=== PATIENT | female | born 1950 | race Caucasian/White ===

== ENCOUNTER → 2017-09-12 13:23 | Outpatient (CLI) | payer MEDICARE, SELFPAY ==
--- NOTE | 2017-09-12 13:31 | RAD_ITS ---
STUDY: X-RAY - CERVICAL SPINE REASON FOR EXAM: Female, 67 years old. Pain TECHNIQUE: 6 view(s) of the cervical spine were obtained. COMPARISON: None FINDINGS: Normal anterior atlantoaxial articulation. Normal odontoid process. Normal cervical lordosis. Normal vertebral bodies. Mild spurring at the endplates. Normal disc space heights. With spurring slightly narrowing the C4-5 and C5-6 intervertebral neuroforamina. The soft tissue structures are unremarkable. RAD/Cerv Spine 4 or 5 Views IMPRESSION: Degenerative changes of the visualized cervical spine. Correlate with CT if needed. Electronically Signed: Ilir Trevizo DO at 23:13 EDT Tel [phone], Service support ,
--- NOTE | 2017-09-12 13:31 | RAD_ITS ---
STUDY: X-RAY - LEFT SHOULDER REASON FOR EXAM: Female, 67 years old. Pain TECHNIQUE: 4 view(s) of the shoulder. COMPARISON: None. FINDINGS: Normal glenohumeral articulation. Normal acromioclavicular joint. Normal acromion. Normal humeral head. Possible subchondral cystic area of the greater tuberosity. The soft tissue structures are unremarkable. Normal visualized pulmonary apex. RAD/Shoulder min 2 Views IMPRESSION: No acute bony pathology of the shoulder. Electronically Signed: Ilir Trevizo DO at 21:17 EDT Tel [phone], Service support ,
== END ==
PROVIDERS: Family Provider Family Medicine; PCP Family Medicine; Visit Provider Family Medicine
DX: M54.2 Cervicalgia (principal); M25.512 Pain in left shoulder
CPT/HCPCS: 72050; 73030

== ENCOUNTER → 2017-10-15 12:15 | Outpatient (CLI) | payer MEDICARE, SELFPAY ==
--- NOTE | 2017-10-15 13:00 | MRI_ITS ---
STUDY: MRI LEFT SHOULDER REASON FOR EXAM: Female, 67 years old. Decreased range of motion and pain in left shoulder. History of several falls. TECHNIQUE: Standardized fat and water weighted pulse sequences were obtained in all 3 orthogonal planes. COMPARISON: Left shoulder radiographs dated September 12, 2017 FINDINGS: There is supraspinatus and infraspinatus tendinosis without a full-thickness tear (coronal series 6 images 6-13). There is subscapularis tendinosis with thickening and increased signal intensity without a full-thickness tear (axial series 3 images 9-16). Normal teres minor tendon. Normal supraspinatus muscle. Normal infraspinatus muscle. Normal subscapularis muscle. Normal teres minor muscle. There is moderate arthrosis of the glenohumeral joint with a glenohumeral joint effusion (axial series 3 images 8-15). There is cystic change in the lateral aspect of the humeral head (coronal series 6 images 7-12). Normal biceps labral complex. The long head of the biceps tendon is torn and retracted (axial series 3 images 8-15). There is a nondisplaced tear of the superior labrum (coronal series 6 image 12). Normal capsulo- ligamentous complex. Normal rotator interval. There is acromioclavicular joint hypertrophy with minimal narrowing of the subacromial space (sagittal series 7 images 8-11). There is a Type II morphology (curved), with a neutral orientation. There is fluid in the subacromial-subdeltoid bursa (coronal series 6 image 11). Normal visualized coracohumeral and coracoacromial ligaments. Normal quadrilateral space. Normal axillary space. Normal deltoid muscle. Normal trapezius muscle. MRI/Upper Ext Joint Only(Routine) IMPRESSION: Supraspinatus, infraspinatus and subscapularis tendinosis. No full-thickness tear is present. Moderate arthrosis of the glenohumeral joint. Cystic change in the humeral head. Torn, retracted long head of the biceps tendon. Nondisplaced superior labral tear. Minimal acromioclavicular joint hypertrophy with slight narrowing of the subacromial space. Small glenohumeral joint effusion with fluid in the subacromial-subdeltoid bursa. Electronically Signed: Jeevan Leung MD at 14:02 EDT , Service support ,
--- NOTE | 2017-10-15 13:45 | MRI_ITS ---
STUDY: MRI CERVICAL SPINE WITHOUT CONTRAST REASON FOR EXAM: Female, 67 years old. Neck pain. TECHNIQUE: Standardized fat and water weighted pulse sequences were obtained in the sagittal and axial planes. COMPARISON: None FINDINGS: Normal foramen magnum and brainstem-cervical cord junction. Normal craniovertebral junction. Normal anterior atlantoaxial articulation. Normal odontoid process. Normal cervical lordosis. Normal vertebral bodies and posterior osseous elements. C2-3: There is minimal disc space narrowing and endplate spondylosis. There is facet arthropathy without significant central canal or foraminal stenosis. C3-4: There is minimal disc space narrowing. There is minimal disc osteophyte complex without significant central canal stenosis. There is uncovertebral facet pathology without significant right foraminal stenosis. There is mild left foraminal stenosis. C4-5: There is mild disc space narrowing and endplate spondylosis. There is a mild disc osteophyte complex with severe central canal stenosis and mild impingement of the spinal cord. There is uncovertebral facet arthropathy with moderate bilateral foraminal stenosis. C5-6: There is moderate disc space narrowing and endplate spondylosis. There is a mild disc osteophyte complex with study central canal stenosis and mild impingement of the spinal cord. There is uncovertebral arthropathy with severe bilateral foraminal stenosis. C6-7: There is minimal disc space narrowing and endplate spondylosis. There is mild disc osteophyte complex with mild central canal stenosis. There is uncovertebral arthropathy with mild right and moderate left foraminal stenosis C7-T1: There is minimal disc space narrowing and endplate spondylosis. There is no significant central canal or foraminal stenosis. Normal visualized soft tissue structures. MRI/Spine Cervical (Routine) IMPRESSION: C4/C5: Severe central canal stenosis with mild cord impingement. Moderate bilateral foraminal stenosis. C5/C6: Severe central canal stenosis with mild cord impingement. Severe bilateral foraminal stenosis. C6/C7: Moderate left foraminal stenosis. Electronically Signed: Josy Pruitt MD at 8:14 EDT Tel , Service support ,
== END ==
PROVIDERS: Family Provider Family Medicine; PCP Family Medicine
DX: M47.22 Other spondylosis with radiculopathy, cervical region (principal)
CPT/HCPCS: 72141; 73221

== ENCOUNTER → 2018-02-27 14:25 | Outpatient (CLI) | payer MEDICARE, SELFPAY ==
[2018-02-27 16:01] LABS: Absolute Lymphocyte Count 2.64 X10^3/ul (0.83-4.51); Basophil# 0.04 X10^3/uL; Basophil% 0.4 % (0-1); Eosinophil# 0.11 X10^3/uL; Hematocrit 45.1 % (37-47); Hemoglobin 15.6 g/dl (12.0-15.0); Lymphocyte # 2.64 X10^3/ul (4.0); Lymphocyte % 24.6 % (19-41); Mean Corp Hgb Conc 34.6 g/gl (32-36); Mean Corpuscular Hgb 26.6 pg (27.0-32.0); Mean Corpuscular Volume 76.8 fL (81-99); Mean Platelet Vol. 11.1 fl (6.2-12.0); Monocyte# 0.98 X10^3/uL; Monocyte% 9.1 % (0-10); Neutrophil # 6.95 X10^3/uL (2.7-7.7); Neutrophil % 64.7 % (47-70); Platelet Count 269 K/mm3 (150-450); RBC Distribution Width CV 14.7 % (11.6-14.6); RBC Distribution Width SD 40.7 fl (35.1-43.9); Red Blood Count 5.87 M/mm3 (4.2-5.4); White Blood Count 10.7 K/mm3 (4.4-11.0)
[2018-02-27 16:03] LABS: POSITIVE COUNT NO; POSITIVE DIFFERENTIAL NO; POSITIVE MORPHOLOGY NO
[2018-02-27 16:38] LABS: T3 Total - Triiodothyronine 0.87 ng/mL (0.6-1.81)
[2018-02-27 16:39] LABS: ALB/GLOB Ratio 1.1 RATIO (0.9-2.4); AST(SGOT) 19 U/L (15-37); Alanine Aminotransfer ALT/SGPT 33 U/L (13-56); Albumin, Serum 4.1 g/dL (3.2-5.0); Alkaline Phosphatase 85 U/L (45-117); Anion Gap 8 (5-15); BUN 16 mg/dL (7-18); BUN/Creat Ratio 21.5 RATIO (10-20); Calcium,Total 9.1 mg/dL (8.5-10.1); Chloride 98 mmol/L (98-107); Creatinine, Serum 0.74 mg/dL (0.55-1.02); EST Glomerular Filtration Rate 83 mL/min (>60); Est Glom Filt Rate - Afr Amer 100 mL/min (>60); Globulin 3.7 g/dL (2.2-4.2); Glucose 74 mg/dL (74-106); Potassium 3.4 mmol/L (3.5-5.1); Protein, Total 7.8 g/dL (6.4-8.2); Sodium Level 135 mmol/L (136-145); Thyroid Stim Hormone (TSH) 0.68 uIU/mL (0.358-3.74)
[2018-02-27 16:52] LABS: Hemoglobin A1c 5.8 % (4.2-6.3)
== END ==
PROVIDERS: Family Provider Family Medicine; PCP Family Medicine; Visit Provider Family Medicine
DX: Z01.818 Encounter for other preprocedural examination (principal); R53.83 Other fatigue; R73.01 Impaired fasting glucose
CPT/HCPCS: 36415; 80053; 83036; 84439; 84443; 84480; 85025

== ENCOUNTER → 2018-02-28 16:28 | Outpatient (CLI) | payer MEDICARE, SELFPAY ==
--- NOTE | 2018-02-28 16:33 | RAD_ITS ---
STUDY: X-RAY CHEST REASON FOR EXAM: Female, 68 years old. COUGH TECHNIQUE: Frontal and lateral views of the chest. COMPARISON: None. FINDINGS: Chronic appearing increased interstitial lung markings. There is no demonstrated pleural abnormality. Normal heart size. Normal mediastinum and divya. Normal visualized pulmonary arteries. There is atherosclerotic calcification of the aortic arch with tortuosity. There are diffuse degenerative changes of the visualized thoracic spine. There is degenerative osteoarthritis of the bilateral shoulders. There is no demonstrated abnormality of the visualized soft tissue structures of the upper abdomen. RAD/Chest PA and Lateral IMPRESSION: There are no acute findings. Electronically Signed: William Ayon MD at 17:44 EDT , Service support ,
[2018-02-28 17:34] LABS: Prothrombin Time (Protime)PT. 13.3 SECONDS (11.7-14.9)
[2018-02-28 17:35] LABS: Partial Thromboplast Time 28.8 Seconds (24.1-36.2)
[2018-02-28 17:37] LABS: Color, Urine Yellow (Yellow); Glucose, Dipstick Normal (Normal); Ketone-Dipstick Negative (Negative); Leukocyte Esterase-Dipstick 25 /ul (Negative); Nitrite-Dipstick Negative (Negative); Occult Blood-Urine Negative /ul (Negative); Protein-Dipstick Negative (Negative); Urine Bilirubin Dipstick Negative (Negative); Urine Clarity Clear (Clear); Urine Urobilinogen Normal (Normal)
== END ==
LOC: LAB.FUTURE 16:29 → MTLAB 16:29
PROVIDERS: Family Provider Family Medicine; PCP Family Medicine; Referring Provider Family Medicine; Visit Provider Family Medicine
DX: Z01.818 Encounter for other preprocedural examination (principal); D68.9 Coagulation defect, unspecified
CPT/HCPCS: 36415; 71046; 81002; 85610; 85730; 87081

== ENCOUNTER → 2018-04-11 10:48 | Outpatient (CLI) | payer MEDICARE, SELFPAY ==
--- NOTE | 2018-04-11 10:56 | RAD_ITS ---
STUDY: X-RAY - CERVICAL SPINE REASON FOR EXAM: Female, 68 years old. Recent fusion of the cervical spine. TECHNIQUE: 3 view(s) of the cervical spine were obtained. COMPARISON: Comparison is made with prior examination dated September 12, 2017. FINDINGS: Normal anterior atlantoaxial articulation. Normal odontoid process. There is straightening of the normal cervical lordosis. The patient is status post anterior fusion at the C4-C5 C5-C6 and C6-C7 levels. Prosthetic discs are seen. The soft tissue structures are unremarkable. RAD/Cerv Spine 2 or 3 Views IMPRESSION: Status post anterior fusion at the C4-C5, C5-C6 and C6-C7 levels. Straightening of the normal cervical lordosis. Electronically Signed: Ant Julien MD at 14:28 EST Tel [phone], Service support ,
== END ==
PROVIDERS: Family Provider Family Medicine; PCP Family Medicine
DX: M50.10 Cervical disc disorder with radiculopathy, unspecified cervical region (principal)
CPT/HCPCS: 72040

== ENCOUNTER → 2018-06-10 15:47 | Outpatient (CLI) | payer MEDICARE, SELFPAY ==
[2018-06-10 17:59] LABS: Ferritin 33 ng/mL (8-252); Free T3 3.1 pg/mL (2.18-3.98); Iron 44 ug/dL (50-170); T4 Free Direct 0.91 ng/dL (0.76-1.46); Thyroid Stim Hormone (TSH) 1.17 uIU/mL (0.358-3.74)
[2018-06-16 08:51] LABS: T3 Reverse 17.9 ng/dL (9.2-24.1)
--- OUTSIDE RECORDS SUMMARY | 2018-08-12 21:47 | XMS RPT_ITS ---
:1950 Author Organization OHIP Care Team Providers Name Role Phone GIBRAN BARAJAS Attending Unavailable GIBRAN BARAJAS Referring Unavailable GIBRAN BARAJAS Admitting Unavailable GIBRAN BARAJAS Attending Unavailable GIBRAN BARAJAS Referring Unavailable DOCTOR, OUT OF TOWN Attending Unavailable MABEL TOBAR Referring Unavailable Malys, Tali Primary Care Unavailable Malys, Tali Attending Unavailable Malys, Tali Primary Care Unavailable Malys, Tali Referring Unavailable Brandon Hanna Attending Unavailable Malys, Tali Primary Care Unavailable MABEL TOBAR Attending Unavailable MABEL TOBAR Referring Unavailable Malys, Tali Primary Care Unavailable MABEL TOBAR Consulting Unavailable Malys, Tali Attending Unavailable Malys, Tali Primary Care Unavailable Malys, Tali Attending Unavailable Malys, Tali Primary Care Unavailable Malys, Tali Attending Unavailable Malys, Tali Primary Care Unavailable Malys, Tali Referring Unavailable MABEL TOBAR Attending Unavailable MABEL TOBAR Referring Unavailable Tali Morocho Primary Care Unavailable PROBLEMS PROBLEMS DATE TYPE CONDITION / CODE ATTENDING STATUS SOURCE 06/13/2018 Unknown E03.9 - Mal[place], Tali Active [facility] Hypothyroidism, Community unspecified / Hospital E03.9(ICD-10) Repository 06/13/2018 Unknown 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, Tali Active [facility] deficiency anemia, Community unspecified / Hospital D50.9(ICD-10) Repository 06/10/2018 Unknown D64.9 - Anemia, Malys, Tali Active [place] unspecified / Community D64.9(ICD-10) Hospital Repository 06/10/2018 Unknown 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, 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 / Community E61.1(ICD-10) Hospital Repository 03/27/2018 Admitting Arthrodesis status GIBRAN BARAJAS Social Moov Diagnosis / Z98.1(ICD-10) [place] Rep[place] 03/27/2018 Admitting Cervical disc GIBRAN BARAJAS Social [facility]ov Diagnosis disorder with [facility] [place] radiculopathy, Repository unspecified cervical region / M50.10(ICD-10) 03/07/2018 Admitting Encounter for other GIBRAN BARAJAS Social Mo[facility] Diagnosis preprocedural [facility] examination / Repository Z01.818(ICD-10) 03/07/2018 Admitting Essential (primary) GIBRAN BARAJAS Social Moov Diagnosis hypertension / [facility] [place] I10(ICD-10) Repository 02/28/2018 Unknown Z01.818 - Encounter Tali Morocho Active [facility] for other [facility] preprocedural Hospital examination / Repository Z01.818(ICD-10) PROCEDURES PROCEDURES No Procedure Records FoundRESULTS RESULTS FREE T3 Collected: 06/10/2018 Status: F Source: SANDI 3:50 PM [facility] REPOSITORY TYPE CODE TESTS RESULT OUT OF RANGE REFERENCE UNITS LAB L501.96458 2.18-3.98 pg/mL Normal FREE T3 3.1 Performed By: #### L501.50951, L501.9520, L503.6150, L503.6550, L506.0400 #### Sandi [facility] [address] [place], [address] THYROID STIM HORMONE Collected: 06/10/2018 Status: F Source: CHERRY LOG (TSH) 3:50 PM [facility] REPOSITORY TYPE CODE TESTS RESULT OUT OF RANGE REFERENCE UNITS LAB L501.9520 0.358-3.74 uIU/mL Normal TSH 1.17 Performed By: #### L501.12586, L501.9520, L503.6150, L503.6550, L506.0400 #### [facility] [address] [place], [address] IRON Collected: 06/10/2018 Status: F Source: CHERRY LOG 3:50 PM [facility] REPOSITORY TYPE CODE TESTS RESULT OUT OF RANGE REFERENCE UNITS LAB L503.6150 50-170 ug/dL Low IRON 44 Performed By: #### L501.93906, L501.9520, L503.6150, L503.6550, L506.0400 #### [facility] [place], [address] FERRITIN Collected: 06/10/2018 Status: F Source: CHERRY LOG 3:50 PM [facility] REPOSITORY TYPE CODE TESTS RESULT OUT OF RANGE REFERENCE UNITS LAB L503.6550 8-252 ng/mL Normal FERRITIN 33 Performed By: #### L501.15920, L501.9520, L503.6150, L503.6550, L506.0400 #### [facility] [address] [place], [address] T4 FREE DIRECT Collected: 06/10/2018 Status: F Source: CHERRY LOG 3:50 PM [facility] REPOSITORY TYPE CODE TESTS RESULT OUT OF RANGE REFERENCE UNITS LAB L506.0400 0.76-1.46 ng/dL Normal T4 FREE 0.91 DIRECT Performed By: #### L501.09046, L501.9520, L503.6150, L503.6550, L506.0400 #### [facility] [address] [place], [address] CERV SPINE 2 OR 3 Observed: 04/11/2018 Status: F Source: SANDI VIEWS 10:54 AM [facility] REPOSITORY [facility] Imaging Services [address] [place] [address] Cerv Spine 2 or 3 Views MR#: [id number] Acct: [id number] Name: JAY CASTANO Rep #: [id number] : 1950 F 68 From: Ant Julien MD PCP: Tali Morocho DO Status: REG CLI Study: Cerv Spine 2 or 3 Views Date of Exam: 04/11/18 Exam# [id number] Ordering Dr: GIBRAN BARAJAS STUDY: X-RAY - CERVICAL SPINE REASON FOR EXAM: Female, 68 years old. Recent fusion of the cervical spine. TECHNIQUE: 3 view(s) of the cervical spine were obtained. COMPARISON: Comparison is made with prior examination dated September 12, 2017. FINDINGS: Normal anterior atlantoaxial articulation. Normal odontoid process. There is straightening of the normal cervical lordosis. The patient is status post anterior fusion at the C4-C5 C5-C6 and C6-C7 levels. Prosthetic discs are seen. The soft tissue structures are unremarkable. RAD/Cerv Spine 2 or 3 Views IMPRESSION: Status post anterior fusion at the C4-C5, C5-C6 and C6-C7 levels. Straightening of the normal cervical lordosis. Electronically Signed: Ant Julien MD at 14:28 EST Tel [phone], Service support , CC: GIBRAN Morocho DO Certified Court/Medical Interpreter: Signed CBC(NO DIFF) Collected: 03/29/2018 Status: F Source: uConnect 5:23 AM [facility] [place] REPOS[place] TYPE CODE TESTS RESULT OUT OF REFERENCE UNITS RANGE LAB WBC 3.6-11.0 /cmm WBC High COUNT 17.8 LAB RBC 4.0-5.4 /cmm RBC High COUNT 5.69 LAB HGB 12.0-16.0 G/DL HEMOGLOBIN 14.9 LAB HCT 36.0-48.0 % HEMATOCRIT 44.3 LAB MCV 80.0-100.0 FL Low MCV 77.9 LAB MCH 26.0-35.0 PG MCH 26.2 LAB MCHC 27.0-37.0 G/DL MCHC 33.6 LAB RDW 11.5-14.5 % RDW High 15.6 LAB PLTC 130.0-400.0 /cmm PLATELET COUNT 254 LAB MPV 7.4-11.0 FL MPV 8.8 RENAL PANEL,FASTING Collected: 03/29/2018 Status: F Source: [facility] 5:23 AM [facility] [place]POS[place] TYPE CODE TESTS RESULT OUT OF REFERENCE UNITS RANGE LAB GLF 70-100 MG/DL High GLUCOSE 138 FASTING Result Comment: NORMAL <100 mg/dL PREDIABETES 101-126 mg/dL DIABETES 126 mg/dL or higher LAB BUN 7-20 MG/DL BLOOD UREA NITROGEN 17 LAB CRET 0.7-1.2 MG/DL CREATININE SERUM 0.7 LAB NA 137-145 MMOL/L SODIUM 139 LAB K 3.5-5.1 MMOL/L POTASSIUM 4.3 LAB CL 98-107 MMOL/L CHLORIDE 102 Result Comment: Please note: Triglyceride levels of 600mg/dL or higher may positively bias chloride results by approximately 2.1 mmol LAB CO2 22-30 MMOL/L CO2 30 LAB ALB 3.5-5.0 G/dl ALBUMIN 4.2 LAB CA 8.4-10.2 MG/DL CALCIUM 9.4 LAB PHOS 2.5-4.5 MG/DL PHOSPHOROUS 3.0 LAB GFR ml/min/1.73s q.m EST. GFR,Non >60 LAB GFRB ml/min/1.73s q.m EST. GFR, >60 [place] LAB GFRCOM GFR Information Average GFR for 60-69 years old = 85. Result Comment: Chronic Kidney disease, GFR = <60. Kidney failure, GFR = <15. The GFR estimate is not adjusted for extreme body surface area or acute process, nor has it been validated for women or ethnic groups other than and . MAGNESIUM Collected: 03/29/2018 Status: F Source: [facility] 5:23 AM [facility] [place] REPOS[place] TYPE CODE TESTS RESULT OUT OF REFERENCE UNITS RANGE LAB MG 1.6-2.3 MG/DL MAGNESIUM 2.3 XR SPINE CERVICAL 2 Observed: 03/28/2018 Status: F Source: [facility] VIEWS 7:05 AM [facility] [place] REPOSITORY PROCEDURE: XR SPINE CERVICAL 2 VIEWS 03/28/2018, 7:05 AM EST CLINICAL HISTORY: Post op ACDF COMPARISON: None. TECHNIQUE: 2 views of the cervical spine. FINDINGS: Hardware is attached to the C4 through C7 levels. Other vertebral body heights are maintained. There are prominent osteophytes arising anteriorly from the C2 and C3 vertebrae. No acute fractures. A soft tissue drain is noted. IMPRESSION: Routine postoperative changes. CBC(NO DIFF) Collected: 03/28/2018 Status: F Source: [facility]Connect 5:45 AM [facility] [place] REPOSITORY TYPE CODE TESTS RESULT OUT OF REFERENCE UNITS RANGE LAB WBC 3.6-11.0 /cmm WBC High COUNT 16.8 LAB RBC 4.0-5.4 /cmm RBC High COUNT 5.58 LAB HGB 12.0-16.0 G/DL HEMOGLOBIN 14.4 LAB HCT 36.0-48.0 % HEMATOCRIT 43.2 LAB MCV 80.0-100.0 FL Low MCV 77.4 LAB MCH 26.0-35.0 PG Low MCH 25.8 LAB MCHC 27.0-37.0 G/DL MCHC 33.3 LAB RDW 11.5-14.5 % RDW High 15.5 LAB PLTC 130.0-400.0 /cmm PLATELET COUNT 283 LAB MPV 7.4-11.0 FL MPV 8.2 Performed By: #### RENF #### Testing performed at [address] [address] RENAL PANEL,FASTING Collected: 03/28/2018 Status: F Source: [facility] 5:45 AM [facility] [place] REPOS[place] TYPE CODE TESTS RESULT OUT OF REFERENCE UNITS RANGE LAB GLF 70-100 MG/DL High GLUCOSE 168 FASTING Result Comment: NORMAL <100 mg/dL PREDIABETES 101-126 mg/dL DIABETES 126 mg/dL or higher LAB BUN 7-20 MG/DL BLOOD UREA NITROGEN 13 LAB CRET 0.7-1.2 MG/DL CREATININE Low SERUM 0.6 LAB NA 137-145 MMOL/L SODIUM Low 133 LAB K 3.5-5.1 MMOL/L POTASSIUM 4.1 LAB CL 98-107 MMOL/L CHLORIDE 99 Result Comment: Please note: Triglyceride levels of 600mg/dL or higher may positively bias chloride results by approximately 2.1 mmol LAB CO2 22-30 MMOL/L CO2 24 LAB ALB 3.5-5.0 G/dl ALBUMIN 4.2 LAB CA 8.4-10.2 MG/DL CALCIUM 8.9 LAB PHOS 2.5-4.5 MG/DL PHOSPHOROUS 2.8 LAB GFR ml/min/1.73s q.m EST. GFR,Non >60 LAB GFRB ml/min/1.73s q.m EST. GFR, >60 [place] [facility] GFRCOM GFR Information Average GFR for 60-69 years old = 85. Result Comment: Chronic Kidney disease, GFR = <60. Kidney failure, GFR = <15. The GFR estimate is not adjusted for extreme body surface area or acute process, nor has it been validated for women or ethnic groups other than and . Performed By: #### RENF #### Testing performed at [address] [address] MAGNESIUM Collected: 03/28/2018 Status: F [facility] [place] REPOSITORY TYPE CODE TESTS RESULT OUT OF REFERENCE UNITS RANGE LAB MG 1.6-2.3 MG/DL MAGNESIUM 2.0 Performed By: #### RENF #### Testing performed at [address] [address] MRSA SCREEN Collected: 03/27/2018 Status: F Source: [place] [employer] 12:35 PM [facility] [place] REPOSITORY TYPE CODE TESTS RESULT OUT OF REFERENCE UNITS RANGE LAB MRSAS MRSA NEGATIVE SCREEN LAB SAS STAPH NEGATIVE AUREUS SCREEN Result Comment: TESTING PERFORMED BY PCR Performed By: #### MRSAST #### Testing performed at [address] [address] PROTHROMBIN TIME W/INR Collected: 02/28/2018 Status: F Source: CHERRY LOG 4:47 PM [facility] REPOSITORY TYPE CODE TESTS RESULT OUT OF RANGE REFERENCE UNITS LAB L300.4150 11.7-14.9 SECONDS Normal PROTIME 13.3 LAB L300.4200 Normal INR 1.0 Performed By: #### L300.3900, L300.4310 #### [facility] [address] [place], [place], [address] PARTIAL THROMBOPLAST Collected: 02/28/2018 Status: F Source: SANDI TIME 4:47 PM [facility] REPOSITORY TYPE CODE TESTS RESULT OUT OF RANGE REFERENCE UNITS LAB L300.4310 24.1-36.2 Seconds Normal PTT 28.8 Performed By: #### L300.3900, L300.4310 #### [facility] [address] [place], [address] URINALYSIS, ROUTINE Collected: 02/28/2018 Status: F Source: SANDI (DIPSTICK) 4:47 PM [facility] REPOSITORY Order Comment: How was Urine Obtained? CLEAN CATCH TYPE CODE TESTS RESULT OUT OF RANGE REFERENCE UNITS LAB L400.3000 Yellow COLOR Normal Yellow LAB L400.3050 Clear Normal CLARITY Clear LAB L400.3200 Normal mg/dl Normal GLUCOSE, UR Normal LAB L400.3300 Negative mg/dL Normal BILIRUBIN URINE Negative LAB L400.3400 Negative mg/dl Normal KETONE UR Negative LAB L400.3465 1.002-1.030 Normal SP.GR. DIPSTX 1.010 LAB L400.3550 5.0 - 8.0 pH UR Normal 6.0 LAB L400.3600 Negative mg/dl PROT Normal DIPSTX Negative LAB L400.3700 Normal mg/dl Normal UROBILI Normal LAB L400.3750 Negative Normal NITRITE UR Negative LAB L400.3780 Negative /ul Normal OCCULT BLOOD-UR Negative LAB L400.3800 Negative /ul High LEUK 25 ESTERASE Performed By: #### L400.2010 #### [facility] [address] [place], [place], [address] Observed: 02/28/2018 Status: F Source: SANDI MRSA/SAID SCREEN 4:47 PM [facility] REPOSITORY MRSA/SAID SCRN S. AUREUS S. aureus Negative MRSA MRSA Negative Performed By: #### M100.651 #### [facility] [place], [place], [address] CHEST PA AND LATERAL Observed: 02/28/2018 Status: F Source: SANDI 4:33 PM [facility] REPOSITORY [facility] [place] [address] Chest PA and Lateral MR#: [id number] Acct: [id number] Name: JAY CASTANO Rep #: [id number] : 1950 F 68 From: William Ayon MD PCP: Tali Morocho DO Status: REG CLI Study: Chest PA and Lateral Date of Exam: 02/28/18 Exam# [id number] Ordering Dr: Tali Morocho DO STUDY: X-RAY CHEST REASON FOR EXAM: Female, 68 years old. COUGH TECHNIQUE: Frontal and lateral views of the chest. COMPARISON: None. FINDINGS: Chronic appearing increased interstitial lung markings. There is no demonstrated pleural abnormality. Normal heart size. Normal mediastinum and divya. Normal visualized pulmonary arteries. There is atherosclerotic calcification of the aortic arch with tortuosity. There are diffuse degenerative changes of the visualized thoracic spine. There is degenerative osteoarthritis of the bilateral shoulders. There is no demonstrated abnormality of the visualized soft tissue structures of the upper abdomen. RAD/Chest PA and Lateral IMPRESSION: There are no acute findings. Electronically Signed: William Ayon MD at 17:44 EDT , Service support , CC: Tali Morocho DO Certified Court/Medical Interpreter: Signed CBC W/DIFF, AUTOMATED Collected: 02/27/2018 Status: F Source: CHERRY LOG 2:26 PM [facility] REPOSITORY TYPE CODE TESTS RESULT OUT OF RANGE REFERENCE UNITS LAB L100.1000 4.4-11.0 K/mm3 Normal WBC 10.7 LAB L100.1200 4.2-5.4 M/mm3 High RBC 5.87 LAB L100.1300 12.0-15.0 g/dl High HGB 15.6 LAB L100.1400 37-47 % Normal HCT 45.1 LAB L100.1500 81-99 fL Low MCV 76.8 LAB L100.1600 27.0-32.0 pg Low MCH 26.6 LAB L100.1700 32-36 g/gl Normal MCHC 34.6 LAB L100.1810 11.6-14.6 % High RDW CV 14.7 LAB L100.1820 35.1-43.9 fl Normal RDW SD 40.7 LAB L100.1900 150-450 K/mm3 Normal PLT 269 LAB L100.2000 6.2-12.0 fl Normal MPV 11.1 LAB L100.2100 47-70 % Normal NEUT% 64.7 LAB L100.2200 19-41 % Normal LY% 24.6 LAB L100.2300 0-10 % Normal MONO% 9.1 LAB L100.2400 0-5 % Normal EO% 1.0 LAB L100.2500 0-1 % Normal BASO% 0.4 LAB L100.2550 0.0-0.9 % Normal IM GRAN % 0.200 Result Comment: IG% - Immature Granulocytes (promyelocytes, myelocytes and metamyelocytes) > 1% indicates that a LEFT SHIFT is Present. LAB L100.2620 2.0-7.7 X10 3/uL Normal Absolute Neut 7.0 LAB L100.2720 0.83-4.51 X10 3/ul Normal Absolute Lymph 2.64 Performed By: #### L100.0100 #### [facility] [address] [place], [place], [id number] T3 TOTAL - TRIIODOTHYRONINE Collected: 02/27/2018 Status: F Source: CHERRY LOG 2:26 PM [facility] REPOSITORY TYPE CODE TESTS RESULT OUT OF RANGE REFERENCE UNITS LAB L501.9186 0.6-1.81 ng/mL Normal T3 Total 0.87 Performed By: #### L501.9186 #### [facility] [address] [place], [place], [id number] COMPREHENSIVE METABOLIC Collected: 02/27/2018 Status: F Source: [facility] 2:26 PM [facility] REPOSITORY TYPE CODE TESTS RESULT OUT OF RANGE REFERENCE UNITS LAB L501.0100 74-106 mg/dL Normal GLU 74 Result Comment: Please note revised GLUCOSE reference range effective 2017. LAB L501.1000 7-18 mg/dL Normal BUN 16 LAB L501.1100 0.55-1.02 mg/dL Normal CREAT,SERUM 0.74 Result Comment: The validity of the calculated GFR AND GFRAA in patients over 70 years has not been determined. Clinical correlation is essential. LAB L501.1110 >60 mL/min Normal EST GFR 83 Result Comment: Non- GFR Calc LAB L501.1115 >60 mL/min Normal EST GFR - AA 100 Result Comment: GFR Calc LAB L501.1300 10-20 RATIO High BUN/CRE 21.5 LAB L501.1500 6.4-8.2 g/dL T Normal PROT 7.8 LAB L501.1800 3.2-5.0 g/dL Normal ALB 4.1 LAB L501.1950 2.2-4.2 g/dL Normal GLOB 3.7 LAB L501.2000 0.9-2.4 RATIO Normal A/G 1.1 LAB L501.2200 8.5-10.1 mg/dL CA Normal 9.1 LAB L501.4100 15-37 U/L Normal AST 19 LAB L501.4305 45-117 U/L Normal ALK P 85 LAB L501.4405 13-56 U/L Normal ALT 33 LAB L501.4600 0.20-1.00 mg/dL T Normal BILI 0.50 LAB L501.5300 136-145 mmol/L Low NA 135 LAB L501.5600 3.5-5.1 mmol/L Low K 3.4 LAB L501.5900 98-107 mmol/L CL Normal 98 LAB L501.6100 21.0-32.0 mmol/L Normal CO2 29.0 LAB L501.6200 5-15 Normal GAP 8 Performed By: #### L500.4050, L501.9520, L506.0400 #### [facility] [address] [place], [address] THYROID STIM HORMONE Collected: 02/27/2018 Status: F Source: SANDI (TSH) 2:26 PM [facility] REPOSITORY TYPE CODE TESTS RESULT OUT OF RANGE REFERENCE UNITS LAB L501.9520 0.358-3.74 uIU/mL Normal TSH 0.68 Performed By: #### L500.4050, L501.9520, L506.0400 #### [facility] [address] [place], [address] T4 FREE DIRECT Collected: 02/27/2018 Status: F Source: CHERRY LOG 2:26 PM [facility] REPOSITORY TYPE CODE TESTS RESULT OUT OF RANGE REFERENCE UNITS LAB L506.0400 0.76-1.46 ng/dL Normal T4 FREE 1.00 DIRECT Performed By: #### L500.4050, L501.9520, L506.0400 #### [facility] [address] [place], [address] HEMOGLOBIN A1C Collected: 02/27/2018 Status: F Source: CHERRY LOG 2:26 PM [facility] REPOSITORY TYPE CODE TESTS RESULT OUT OF RANGE REFERENCE UNITS LAB L501.9985 4.2-6.3 % Normal HGB A1C 5.8 Performed By: #### L501.9985 #### [facility] [address] [place], [address] SPINE CERVICAL Observed: 10/15/2017 Status: F Source: SANDI (ROUTINE) 12:28 PM [facility] REPOSITORY [facility] Imaging Services [address] [place] [address] Spine Cervical (Routine) MR#: [id number] Acct: [id number] Name: JAY CASTANO Rep #: [id number] : 1950 F 67 From: Josy Pruitt PCP: Tali Morocho DO Status: REG CLI Study: Spine Cervical (Routine) Date of Exam: 10/15/17 Exam# [id number] Ordering Dr: Aleksandr Tejeda STUDY: MRI CERVICAL SPINE WITHOUT CONTRAST REASON FOR EXAM: Female, 67 years old. Neck pain. TECHNIQUE: Standardized fat and water weighted pulse sequences were obtained in the sagittal and axial planes. COMPARISON: None FINDINGS: Normal foramen magnum and brainstem-cervical cord junction. Normal craniovertebral junction. Normal anterior atlantoaxial articulation. Normal odontoid process. Normal cervical lordosis. Normal vertebral bodies and posterior osseous elements. C2-3: There is minimal disc space narrowing and endplate spondylosis. There is facet arthropathy without significant central canal or foraminal stenosis. C3-4: There is minimal disc space narrowing. There is minimal disc osteophyte complex without significant central canal stenosis. There is uncovertebral facet pathology without significant right foraminal stenosis. There is mild left foraminal stenosis. C4-5: There is mild disc space narrowing and endplate spondylosis. There is a mild disc osteophyte complex with severe central canal stenosis and mild impingement of the spinal cord. There is uncovertebral facet arthropathy with moderate bilateral foraminal stenosis. C5-6: There is moderate disc space narrowing and endplate spondylosis. There is a mild disc osteophyte complex with study central canal stenosis and mild impingement of the spinal cord. There is uncovertebral arthropathy with severe bilateral foraminal stenosis. C6-7: There is minimal disc space narrowing and endplate spondylosis. There is mild disc osteophyte complex with mild central canal stenosis. There is uncovertebral arthropathy with mild right and moderate left foraminal stenosis C7-T1: There is minimal disc space narrowing and endplate spondylosis. There is no significant central canal or foraminal stenosis. Normal visualized soft tissue structures. MRI/Spine Cervical (Routine) IMPRESSION: C4/C5: Severe central canal stenosis with mild cord impingement. Moderate bilateral foraminal stenosis. C5/C6: Severe central canal stenosis with mild cord impingement. Severe bilateral foraminal stenosis. C6/C7: Moderate left foraminal stenosis. Electronically Signed: Josy Pruitt MD at 8:14 EDT Tel , Service support , CC: Tali Morocho DO; Aleksandr Tejeda Certified Court/Medical Interpreter: Signed UPPER EXT JOINT Observed: 10/15/2017 Status: F Source: CHERRY LOG ONLY(ROUTINE) 12:24 PM [facility] REPOSITORY [facility] Imaging Services [address] [place] [address] Upper Ext Joint Only(Routine) MR#: [id number] Acct: [id number] Name: JAY CASTANO Rep #: [id number] : 1950 F 67 From: Jeevan Leung MD PCP: Tali Morocho DO Status: REG CLI Study: Upper Ext Joint Only(Routine) Date of Exam: 10/15/17 Exam# [id number] Ordering Dr: Aleksandr Tejeda STUDY: MRI LEFT SHOULDER REASON FOR EXAM: Female, 67 years old. Decreased range of motion and pain in left shoulder. History of several falls. TECHNIQUE: Standardized fat and water weighted pulse sequences were obtained in all 3 orthogonal planes. COMPARISON: Left shoulder radiographs dated September 12, 2017 FINDINGS: There is supraspinatus and infraspinatus tendinosis without a full-thickness tear (coronal series 6 images 6-13). There is subscapularis tendinosis with thickening and increased signal intensity without a full-thickness tear (axial series 3 images 9-16). Normal teres minor tendon. Normal supraspinatus muscle. Normal infraspinatus muscle. Normal subscapularis muscle. Normal teres minor muscle. There is moderate arthrosis of the glenohumeral joint with a glenohumeral joint effusion (axial series 3 images 8-15). There is cystic change in the lateral aspect of the humeral head (coronal series 6 images 7-12). Normal biceps labral complex. The long head of the biceps tendon is torn and retracted (axial series 3 images 8-15). There is a nondisplaced tear of the superior labrum (coronal series 6 image 12). Normal capsulo- ligamentous complex. Normal rotator interval. There is acromioclavicular joint hypertrophy with minimal narrowing of the subacromial space (sagittal series 7 images 8-11). There is a Type II morphology (curved), with a neutral orientation. There is fluid in the subacromial-subdeltoid bursa (coronal series 6 image 11). Normal visualized coracohumeral and coracoacromial ligaments. Normal quadrilateral space. Normal axillary space. Normal deltoid muscle. Normal trapezius muscle. MRI/Upper Ext Joint Only(Routine) IMPRESSION: Supraspinatus, infraspinatus and subscapularis tendinosis. No full-thickness tear is present. Moderate arthrosis of the glenohumeral joint. Cystic change in the humeral head. Torn, retracted long head of the biceps tendon. Nondisplaced superior labral tear. Minimal acromioclavicular joint hypertrophy with slight narrowing of the subacromial space. Small glenohumeral joint effusion with fluid in the subacromial-subdeltoid bursa. Electronically Signed: Jeevan Leung MD at 14:02 EDT , Service support , CC: Tali Morocho DO; Aleksandr Tejeda Certified Court/Medical Interpreter: Signed SHOULDER MIN 2 VIEWS Observed: 09/12/2017 Status: F Source: CHERRY LOG 1:32 PM [facility] REPOSITORY [facility] Imaging Services [address] [place] [id number] Shoulder min 2 Views MR#: [id number] Acct: [id number] Name: JAY CASTANO Rep #: [id number] : 1950 F 67 From: Ilir Trevizo DO PCP: Tali Morocho DO Status: REG CLI Study: Shoulder min 2 Views Date of Exam: 09/12/17 Exam# [id number] Ordering Dr: Brandon Hanna DO STUDY: X-RAY - LEFT SHOULDER REASON FOR EXAM: Female, 67 years old. Pain TECHNIQUE: 4 view(s) of the shoulder. COMPARISON: None. FINDINGS: Normal glenohumeral articulation. Normal acromioclavicular joint. Normal acromion. Normal humeral head. Possible subchondral cystic area of the greater tuberosity. The soft tissue structures are unremarkable. Normal visualized pulmonary apex. RAD/Shoulder min 2 Views IMPRESSION: No acute bony pathology of the shoulder. Electronically Signed: Ilir Trevizo DO at 21:17 EDT Tel [phone], Service support , CC: Tali Morocho DO; Brandon Hanna DO Certified Court/Medical Interpreter: Signed CERV SPINE 4 OR 5 Observed: 09/12/2017 Status: F Source: CHERRY LOG VIEWS 1:32 PM [facility] REPOSITORY [facility] Imaging Services [address] [place] [address] Cerv Spine 4 or 5 Views MR#: [id number] Acct: [id number] Name: JAY CASTANO Rep #: [id number] : 1950 F 67 From: Ilir Trevizo DO PCP: Tali Morocho DO Status: REG CLI Study: Cerv Spine 4 or 5 Views Date of Exam: 09/12/17 Exam# [id number] Ordering Dr: Brandon Hanna DO STUDY: X-RAY - CERVICAL SPINE REASON FOR EXAM: Female, 67 years old. Pain TECHNIQUE: 6 view(s) of the cervical spine were obtained. COMPARISON: None FINDINGS: Normal anterior atlantoaxial articulation. Normal odontoid process. Normal cervical lordosis. Normal vertebral bodies. Mild spurring at the endplates. Normal disc space heights. With spurring slightly narrowing the C4-5 and C5-6 intervertebral neuroforamina. The soft tissue structures are unremarkable. RAD/Cerv Spine 4 or 5 Views IMPRESSION: Degenerative changes of the visualized cervical spine. Correlate with CT if needed. Electronically Signed: Ilir Trevizo DO at 23:13 EDT Tel [phone], Service support , CC: Tali Morocho DO; Brandon Hanna DO Certified Court/Medical Interpreter: Signed ALLERGIES ALLERGIES DATE TYPE / CODE NAME / CODE REACTION SEVERITY SOURCE 12/18/2016 Drug No Known Unknown [facility] Allergy/4160 Allergies/F00 Hospital 85733(SNOMED 7342475(RXNOR Repository CT) M) ENCOUNTERS ENCOUNTERS ADMIT/DISCHARGE ACCOUNT NUMBER ADMITTING ENCOUNTER LOCATION SOURCE CLASS 06/13/2018 [id number] [facility] ding:LAB.FUT Repository URE 06/10/2018 [id number] [facility] ding:MTLAB Repository 05/28/2018 [id number] [facility] ding:RAD.FUT Repository URE 04/11/2018 [id number] [facility] ding:MTRAD Repository 03/27/2018/11/03/08 [id number] GIBRAN BARAJAS [facility]patient [facility] [place] [address] 18 D Encounter MSRoom: System ([place]) 0202Bed: 1 Repository 03/07/2018 [id number] [facility] [place] [address] [place] ([place]) Repository 02/28/2018 [id number] [facility] ding:MTLAB Repository 02/27/2018 [id number] [facility] ding:BFHLAB Repository 10/15/2017 [id number] [facility] ding:MRI Repository 09/12/2017 [id number] [facility] ding:MTRAD Repository PAYERS PAYERS ENCOUNTER GUARANTOR PAYER SUBSCRIBER SOURCE 06/13/2018 JAY CASTANO333 Insurance:SONU MOBLEY: Community [place] [employer] [id number]: Repository [id number]: [phone]) [id number] [phone] (HP) Date:4772-69-64SX [address], [place] [address]HV: 06/13/2018 Secondary NOT GIVENUNK Sandi Insurance:SELF PAY [facility] Number: Effective Repository Date:2018-06-13 06/10/2018 JAY Meyer Primary JAY Meyer [place] [id number] Insurance:ANTHGLADYS CASTANODOB: Community [employer] [id number] Number: Repository [id number]: [phone]) [id number] [phone] (HP) Date:2406-73-72NN [address], [place] [address]UJ: 06/10/2018 Secondary NOT GIVENUNK [place] Insurance:SELF PAY [facility] Number: Effective Repository Date:2018-06-02 05/28/2018 JAY Meyer Primary JAY Mitch [place] [id number] Insurance:ANTHGLADYS CASTANODOB: Community [employer] [id number]: Repository [id number]: [phone]) [id number] [phone] (HP) Date:3771-86-43ET [address], [place] [address]VR: 05/28/2018 Secondary NOT GIVENUNK [place] Insurance:SELF PAY [facility] Number: Effective Repository Date:2018-05-28 04/11/2018 JAY Meyer Primary JAY Mitch [place] [id number] Insurance:SONU CASTANODOB: Community [employer] [id number] Number: Repository [id number]: [phone]) [id number] [phone] (HP) Date:1027-66-08KL [address], [place] [address]TX: 04/11/2018 Secondary NOT GIVENUNK [place] Insurance:SELF PAY [facility] Number: Effective Repository Date:2018-04-01 02/28/2018 JAY Meyer Primary JAY Meyer [place] [id number] Insurance:SONU IVORYB: Community [employer] [id number] Number: Repository [id number]: 330 [id number] [phone] (HP) Date:8013-95-07GY [address] [place] [address]BS: 02/28/2018 Secondary NOT GIVENUNK [place] Insurance:SELF PAY [facility] Number: Effective Repository Date:2018-02-28 02/27/2018 JAY Meyer Primary JAY Meyer [place] [id number] Insurance:ANTHGLADYS PATRICKCLAUDIODOB: Community [employer] [id number] Number: Repository [id number]: (330 [id number] [phone] (HP) Date:7993-57-17PQ [address] [place] [address]WC: 02/27/2018 Secondary NOT GIVENUNK [place] Insurance:SELF PAY [facility] Number: Effective Repository Date:2017-10-30 10/15/2017 JAY Meyer Primary JAY Meyer [place] [id number] Insurance:MYGLADYS DOBBSJEFFB: Community [employer] [id number] Number: Repository [id number]: (330 [id number] [phone] (HP) Date:6749-75-03DD [address] [place] [address]EB: 10/15/2017 Secondary NOT GIVENUNK [place] Insurance:SELF PAY [facility] Number: Effective Repository Date:2017-10-03 09/12/2017 JAY Meyer Primary JAY Meyer [place] [id number] Insurance:ANTHEM OMAIRADOB: Community [employer] [id number]: Repository [id number]: (994) [id number] [phone] Date:3965-13-95CP [address]TXNYQ, [place] [address]YK: 09/12/2017 Secondary NOT GIVENUNK [place] Insurance:SELF PAY [facility] Number: Effective Repository Date:2017-09-12
== END ==
PROVIDERS: Family Provider Family Medicine; PCP Family Medicine; Referring Provider Family Medicine; Visit Provider Family Medicine
DX: D64.9 Anemia, unspecified (principal); E03.9 Hypothyroidism, unspecified; E61.1 Iron deficiency
CPT/HCPCS: 36415; 82728; 83540; 84439; 84443; 84481; 84482

== ENCOUNTER → 2018-06-27 14:46 | Outpatient (CLI) | payer MEDICARE, SELFPAY ==
--- NOTE | 2018-06-27 15:10 | RAD_ITS ---
STUDY: X-RAY - CERVICAL SPINE REASON FOR EXAM: Female, 68 years old. Status post cervical fusion, follow-up TECHNIQUE: 8 view(s) of the cervical spine were obtained. COMPARISON: 04/11/2018 FINDINGS: Normal anterior atlantoaxial articulation. Normal odontoid process. There is straightening of the normal cervical lordosis. There is diffuse demineralization of the cervical spine. Anterior fusion hardware at C4, C5, C6 and C7 with intervening disc spacers similar in alignment since prior study. No subluxation or hardware loosening is identified on neutral, flexion or extension views. There is foraminal narrowing of left C3-C4 more than right C3-C4. There is also mild narrowing of bilateral C5-C6. The soft tissue structures are unremarkable. RAD/Cerv Spine Obl/Flex/Ext Comp IMPRESSION: 1. Stable anterior fusion C4-C7, without evidence of hardware loosening or subluxation. 2. Bilateral foraminal narrowing at C5-C6 and left more than right C3-C4. Electronically Signed: Eduardo Holbrook MD at 23:16 EST , Service support ,
== END ==
PROVIDERS: Family Provider Family Medicine; PCP Family Medicine
DX: M54.2 Cervicalgia (principal)
CPT/HCPCS: 72052

== ENCOUNTER → 2018-10-14 | Outpatient (CLI) | payer MEDICARE, SELFPAY ==
[2018-10-14 14:16] LABS: Absolute Lymphocyte Count 2.86 X10^3/ul (0.83-4.51); Absolute Neutrophil Count 3.6 X10^3/uL (2.0-7.7); Basophil# 0.03 X10^3/uL; Basophil% 0.4 % (0-1); Eosinophil# 0.16 X10^3/uL; Eosinophils% 2.2 % (0-5); Hematocrit 45.2 % (37-47); Lymphocyte # 2.86 X10^3/ul (4.0); Lymphocyte % 38.9 % (19-41); Mean Corp Hgb Conc 33.2 g/gl (32-36); Mean Corpuscular Hgb 25.4 pg (27.0-32.0); Mean Corpuscular Volume 76.6 fL (81-99); Mean Platelet Vol. 10.3 fl (6.2-12.0); Monocyte# 0.73 X10^3/uL; Monocyte% 9.9 % (0-10); Neutrophil # 3.57 X10^3/uL (2.7-7.7); Neutrophil % 48.5 % (47-70); Platelet Count 238 K/mm3 (150-450); RBC Distribution Width CV 15.2 % (11.6-14.6); RBC Distribution Width SD 42.2 fl (35.1-43.9); White Blood Count 7.4 K/mm3 (4.4-11.0)
[2018-10-14 14:20] LABS: POSITIVE COUNT NO; POSITIVE DIFFERENTIAL NO; POSITIVE MORPHOLOGY NO
[2018-10-14 14:30] LABS: Iron 59 ug/dL (50-170)
== END | disposition home or self-care (01) ==
PROVIDERS: Family Provider Family Medicine; PCP Family Medicine; Referring Provider Family Medicine; Visit Provider Family Medicine
DX: E03.9 Hypothyroidism, unspecified (principal); D50.9 Iron deficiency anemia, unspecified
CPT/HCPCS: 36415; 83540; 84439; 84443; 84481; 85025

== ENCOUNTER → 2019-04-06 15:37 | Outpatient (CLI) | payer MEDICARE, SELFPAY ==
--- NOTE | 2019-04-06 15:59 | RAD_ITS ---
STUDY: X-RAY - CERVICAL SPINE REASON FOR EXAM: Female, 69 years old. Follow-up, neck fusion surgery 1 year ago TECHNIQUE: 8 view(s) of the cervical spine were obtained. COMPARISON: Previous study of June 2018 FINDINGS: Normal anterior atlantoaxial articulation. Normal odontoid process. Normal cervical lordosis. Anterior spinal fusion changes are noted from C4 to C7 with disc spacers present at the C4-5, C5-6, and C6-7 levels. There is no evidence of fracture or subluxation. There is mild bilateral foraminal narrowing throughout the mid to lower cervical region. There is no evidence of fixation plate loosening. The soft tissue structures are unremarkable. RAD/Cerv Spine Obl/Flex/Ext Comp IMPRESSION: Anterior spinal fusion noted with plates and multiple screws from C4 to C7 with disc spacers throughout this region noted. There is no evidence of fracture or subluxation. There is mild bilateral foraminal narrowing throughout the mid to lower cervical region. Electronically Signed: Hemant Salmon MD at 20:25 EST , Service support ,
== END ==
PROVIDERS: Family Provider Family Medicine; PCP Family Medicine
DX: M54.2 Cervicalgia (principal)
CPT/HCPCS: 72052

== ENCOUNTER → 2019-04-09 15:47 | Outpatient (CLI) | payer MEDICARE, SELFPAY ==
[2019-04-09 17:44] LABS: Free T3 2.9 pg/mL (2.18-3.98); Thyroid Stim Hormone (TSH) 0.65 uIU/mL (0.358-3.74)
== END ==
PROVIDERS: Family Provider Family Medicine; PCP Family Medicine; Visit Provider Family Medicine
DX: E03.9 Hypothyroidism, unspecified (principal)
CPT/HCPCS: 36415; 84439; 84443; 84481

== ENCOUNTER → 2019-05-04 14:43 | Outpatient (CLI) | payer MEDICARE, SELFPAY ==
--- NOTE | 2019-05-04 14:48 | RAD_ITS ---
STUDY: X-RAY - CERVICAL SPINE REASON FOR EXAM: Female, 69 years old. Cervicalgia. TECHNIQUE: 7 view(s) of the cervical spine were obtained, 3 views obtained in lateral projection in neutral, flexion extension technique. COMPARISON: None FINDINGS: Normal anterior atlantoaxial articulation. Normal odontoid process. The patient is status post anterior fusion from C4 to C7. Normal alignment with no evidence of dynamic instability. No evidence of loosening. There is mild multilevel spondylosis at C2-C3 and C3-C4. No acute fracture. There are variable degrees of neural foraminal encroachment. The soft tissue structures are unremarkable. RAD/Cerv Spine Obl/Flex/Ext Comp IMPRESSION: Postoperative changes as described above with no acute fracture or subluxation. No evidence of dynamic instability. Electronically Signed: Alessandra Rg MD at 0:39 EST , Service support ,
--- NOTE | 2019-05-04 14:48 | RAD_ITS ---
STUDY: X-RAY - THORACIC SPINE REASON FOR EXAM: Female, 69 years old. Cervicalgia, history of fusion. TECHNIQUE: 3 view(s) of the thoracic spine were obtained. COMPARISON: None. FINDINGS: There is a slight increase in the normal thoracic kyphosis. There is mild scoliosis of thoracolumbar spine, convexity to the left. There is demineralization of the thoracic spine with endplate spondylosis. There is multilevel disc space narrowing of the thoracic spine. There is a mild compression fracture of T11, exact age indeterminate and likely old given morphology. The patient status post anterior fusion from C4 to C7. The soft tissue structures are unremarkable. RAD/Thoracic Spine 3 Views IMPRESSION: Diffuse osteopenia along with multilevel degenerative disease as described above. T11 compression fracture described above. Electronically Signed: Alessandra Rg MD at 0:36 EST , Service support ,
== END ==
PROVIDERS: Family Provider Family Medicine; PCP Family Medicine
DX: M54.2 Cervicalgia (principal)
CPT/HCPCS: 72052; 72072

== ENCOUNTER → 2020-10-12 10:26 | Outpatient (CLI) | payer MEDICARE, SELFPAY ==
[2020-10-12 12:09] LABS: Absolute Lymphocyte Count 2.51 X10^3/uL (0.83-4.51); Absolute Neutrophil Count 3.7 X10^3/uL (2.0-7.7); Basophil# 0.05 X10^3/uL; Basophil% 0.7 % (0-1); Eosinophil# 0.17 X10^3/uL; Eosinophils% 2.4 % (0-5); Hematocrit 49.3 % (37-47); Hemoglobin 16.4 g/dL (12.0-15.0); Lymphocyte # 2.51 X10^3/ul (0.83-4.51); Lymphocyte % 35.2 % (19-41); Mean Corp Hgb Conc 33.3 g/dL (32-36); Mean Corpuscular Hgb 25.9 pg (27.0-32.0); Mean Corpuscular Volume 77.8 fL (81-99); Mean Platelet Vol. 10.6 fl (6.2-12.0); Monocyte% 9.8 % (0-10); NRBC Flagged by Analyzer 0 % (0-5); Neutrophil # 3.68 X10^3/uL (2.7-7.7); Neutrophil % 51.6 % (47-70); Platelet Count 281 K/mm3 (150-450); RBC Distribution Width CV 13.9 % (11.6-14.6); RBC Distribution Width SD 38.8 fl (35.1-43.9); Red Blood Count 6.34 M/mm3 (4.2-5.4); White Blood Count 7.1 K/mm3 (4.4-11.0)
[2020-10-12 12:25] LABS: Vitamin B12 1637 pg/mL (211-911)
[2020-10-12 13:12] LABS: ALB/GLOB Ratio 1.1 RATIO (0.9-2.4); AST(SGOT) 25 U/L (15-37); Alanine Aminotransfer ALT/SGPT 41 U/L (13-56); Alkaline Phosphatase 97 U/L (45-117); Anion Gap 8 (5-15); BUN 10 mg/dL (7-18); BUN/Creat Ratio 13.1 RATIO (10-20); Calcium,Total 9.2 mg/dL (8.5-10.1); Chloride 103 mmol/L (98-107); Cholesterol 239 mg/dL (200); Creatinine, Serum 0.76 mg/dL (0.55-1.02); EST Glomerular Filtration Rate 80 mL/min (>60); Est Glom Filt Rate - Afr Amer 97 mL/min (>60); Ferritin 140 ng/mL (8-252); Free T3 2.7 pg/mL (2.18-3.98); Globulin 3.5 g/dL (2.2-4.2); Glucose 96 mg/dL (74-106); High Density Lipoprotein 47 mg/dL; Iron 88 ug/dL (50-170); Potassium 3.3 mmol/L (3.5-5.1); Protein, Total 7.5 g/dL (6.4-8.2); Sodium Level 136 mmol/L (136-145); T4 Free Direct 0.71 ng/dL (0.76-1.46); Thyroid Stim Hormone (TSH) 0.53 uIU/mL (0.358-3.74); Triglycerides 218 mg/dL; Very Low Density Lipoprotein 44 mg/dL (5-40)
== END ==
PROVIDERS: PCP Family Medicine; Referring Provider Family Medicine; Visit Provider Family Medicine
DX: E61.1 Iron deficiency (principal); E78.5 Hyperlipidemia, unspecified; E53.8 Deficiency of other specified B group vitamins; I10 Essential (primary) hypertension; E03.9 Hypothyroidism, unspecified
CPT/HCPCS: 36415; 80053; 80061; 82607; 82728; 83540; 84439; 84443; 84481; 85025

== ENCOUNTER 2021-12-15 14:36 | Outpatient (CLI) | payer MEDICARE, SELFPAY ==
[2021-12-15 18:15] LABS: Absolute Neutrophil Count 4.2 X10^3/uL (2.0-7.7); Basophil# 0.05 X10^3/uL; Basophil% 0.7 % (0-1); Eosinophil# 0.12 X10^3/uL; Eosinophils% 1.6 % (0-5); Hematocrit 47.3 % (37-47); Hemoglobin 15.8 g/dL (12.0-15.0); Lymphocyte % 31.1 % (19-41); Mean Corp Hgb Conc 33.4 g/dL (32-36); Mean Corpuscular Hgb 26.6 pg (27.0-32.0); Mean Corpuscular Volume 79.5 fL (81-99); Mean Platelet Vol. 11.1 fl (6.2-12.0); Monocyte# 0.68 X10^3/uL; Monocyte% 9.2 % (0-10); NRBC Flagged by Analyzer 0 % (0-5); Neutrophil # 4.24 X10^3/uL (2.7-7.7); Neutrophil % 57.3 % (47-70); Platelet Count 243 K/mm3 (150-450); RBC Distribution Width CV 14.3 % (11.6-14.6); RBC Distribution Width SD 41.1 fl (35.1-43.9); Red Blood Count 5.95 M/mm3 (4.2-5.4); White Blood Count 7.4 K/mm3 (4.4-11.0)
[2021-12-15 18:31] LABS: ALB/GLOB Ratio 1.1 RATIO (0.9-2.4); AST(SGOT) 22 U/L (15-37); Alanine Aminotransfer ALT/SGPT 35 U/L (13-56); Albumin, Serum 3.8 g/dL (3.2-5.0); Alkaline Phosphatase 85 U/L (45-117); Anion Gap 4 (5-15); BUN 13 mg/dL (7-18); BUN/Creat Ratio 20.8 RATIO (10-20); Calcium,Total 9.3 mg/dL (8.5-10.1); Chloride 107 mmol/L (98-107); Cholesterol 269 mg/dL (200); Creatinine, Serum 0.62 mg/dL (0.55-1.02); EST Glomerular Filtration Rate 100 mL/min (>60); Est Glom Filt Rate - Afr Amer 121 mL/min (>60); Free T3 4.2 pg/mL (2.18-3.98); Globulin 3.4 g/dL (2.2-4.2); Glucose 79 mg/dL (74-106); High Density Lipoprotein 46 mg/dL; Potassium 3.6 mmol/L (3.5-5.1); Protein, Total 7.2 g/dL (6.4-8.2); Sodium Level 140 mmol/L (136-145); T4 Free Direct 0.58 ng/dL (0.76-1.46); Thyroid Stim Hormone (TSH) 0.32 uIU/mL (0.358-3.74); Triglycerides 238 mg/dL; Very Low Density Lipoprotein 48 mg/dL (5-40)
[2021-12-18 08:49] LABS: Vitamin B12 976 pg/mL (211-911)
== END 2021-12-15 23:59 | disposition home or self-care (01) ==
LOC: MTLAB 14:37
PROVIDERS: PCP Family Medicine; Referring Provider Family Medicine; Visit Provider Family Medicine
DX: E03.9 Hypothyroidism, unspecified (principal); I10 Essential (primary) hypertension; E53.8 Deficiency of other specified B group vitamins; E78.5 Hyperlipidemia, unspecified
CPT/HCPCS: 36415; 80053; 80061; 82607; 84439; 84443; 84481; 85025

== ENCOUNTER → 2023-02-07 | Outpatient (CLI) | payer MEDICARE, SELFPAY ==
[2023-02-07 15:31] LABS: Absolute Neutrophil Count 4.2 X10^3/uL (2.0-7.7); Basophil# 0.08 X10^3/uL; Basophil% 1.1 % (0-1); Eosinophil# 0.28 X10^3/uL; Eosinophils% 3.8 % (0-5); Hematocrit 48.2 % (37-47); Hemoglobin 15.9 g/dL (12.0-15.0); Lymphocyte % 29.5 % (19-41); Mean Corpuscular Hgb 25.6 pg (27.0-32.0); Mean Corpuscular Volume 77.6 fL (81-99); Mean Platelet Vol. 10.6 fl (6.2-12.0); Monocyte# 0.72 X10^3/uL; Monocyte% 9.7 % (0-10); NRBC Flagged by Analyzer 0 % (0-5); Neutrophil # 4.16 X10^3/uL (2.7-7.7); Neutrophil % 55.6 % (47-70); Platelet Count 311 K/mm3 (150-450); RBC Distribution Width CV 14.2 % (11.6-14.6); RBC Distribution Width SD 39.5 fl (35.1-43.9); Red Blood Count 6.21 M/mm3 (4.2-5.4); White Blood Count 7.5 K/mm3 (4.4-11.0)
[2023-02-07 15:35] LABS: Vitamin D,25 Hydroxy 35.1 ng/mL
[2023-02-07 15:45] LABS: AST(SGOT) 21 U/L (15-37); Alanine Aminotransfer ALT/SGPT 39 U/L (13-56); Albumin, Serum 3.9 g/dL (3.2-5.0); Alkaline Phosphatase 99 U/L (45-117); Anion Gap 5 (5-15); BUN 18 mg/dL (7-18); BUN/Creat Ratio 22.9 RATIO (10-20); Calcium,Total 9.1 mg/dL (8.5-10.1); Chloride 106 mmol/L (98-107); Cholesterol 264 mg/dL (200); Creatinine, Serum 0.79 mg/dL (0.55-1.02); EST Glomerular Filtration Rate 77 mL/min (>60); Est Glom Filt Rate - Afr Amer 93 mL/min (>60); Ferritin 127 ng/mL (8-252); Free T3 2.4 pg/mL (2.18-3.98); Glucose 93 mg/dL (74-106); High Density Lipoprotein 46 mg/dL; Iron 58 ug/dL (50-170); Potassium 3.5 mmol/L (3.5-5.1); Protein, Total 7.9 g/dL (6.4-8.2); Sodium Level 138 mmol/L (136-145); Thyroid Stim Hormone (TSH) 0.51 uIU/mL (0.358-3.74); Triglycerides 181 mg/dL; Very Low Density Lipoprotein 36 mg/dL (5-40)
== END | disposition home or self-care (01) ==
LOC: MTLAB 12:34
PROVIDERS: PCP Family Medicine; Visit Provider Family Medicine
DX: E03.9 Hypothyroidism, unspecified (principal); Z51.81 Encounter for therapeutic drug level monitoring; E61.1 Iron deficiency; E78.5 Hyperlipidemia, unspecified; E55.9 Vitamin D deficiency, unspecified
CPT/HCPCS: 36415; 80053; 80061; 82306; 82728; 83540; 84439; 84443; 84481; 85025

== ENCOUNTER → 2023-04-16 | Outpatient (CLI) | payer SELFPAY, MEDICARE ==
[2023-04-16] MEDS: Zolpidem Tartrate 5 MG Tablet PO (21:59)
== END | disposition home or self-care (01) ==
PROVIDERS: PCP Family Medicine; Referring Provider Nurse Practitioner Acute Care; Visit Provider Nurse Practitioner Acute Care
DX: G47.33 Obstructive sleep apnea (adult) (pediatric) (principal)
CPT/HCPCS: 95810

== ENCOUNTER → 2023-05-27 | Outpatient (CLI) | payer MEDICARE, SELFPAY ==
--- OUTSIDE RECORDS SUMMARY | 2023-05-27 11:17 | XMS RPT_ITS | CCD ---
Author Name Unknown Address [address] [place] [address] Organization [facility] Care Team Providers Care Industrial Conveyor Belt Repairer Name Role Phone GIBRAN BARAJAS Unavailable Unavailable SIEGALGIBRAN Unavailable Unavailable SIEGAL GIBRAN D Unavailable Unavailable SIEGALGIBRAN Unavailable Unavailable SIEGALGIBRAN Unavailable Unavailable Problems Problem Classification Problem Date Documented Da te Episodic/Chronic Essential hypertension (2 sources) Essential (primary) hypertension; Translations: [Essential (primary) hypertension] Onset: 03-07-2018 Chronic Other connective tissue disease (2 sources) Arthrodesis status; Translations: [Arthrodesis status] Onset: 03-27-2018 Episodic Spondylosis; intervertebral disc disorders; other back problems (2 sources) Cervical disc disorder with radiculopathy, unspecified cervical region; Translations: [Cervical disc disorder with radiculopathy, unspecified cervical region] Onset: 03-27-2018 Chronic Results Test Name Value Interpretation Reference Range Facil ity Encounters Encounter Date Encounter Type Care Provider Facility Start: 03-27-2018 End: 03-29-2018 Evaluation and management of inpatient GIBRAN [facility] Start: 03-07-2018 Encounter for other preprocedural examination [facility] Start: 03-07-2018 Patient encounter procedure GIBRAN [facility] Encounter for other preprocedural examination [facility] Summary Purpose Family History No Family History Records Found Advance Directives No Advanced Directives Records Found Additional Source Comments INFORMATION SOURCE (unrecogn ized section and content) FOR RECORDS PERTAINING TO PATIENTS WHO ARE OR HAVE BEEN ENROLLED IN A CHEMICAL DEPENDENCY/SUBSTANCEABUSE PROGRAM, SOME INFORMATION MAY BE OMITTED. This clinical summary was aggregated from multiple sources. Caution should be exercised in using it in the provision of clinical care. This summary normalizes information from multiple sources, and as a consequence, information in this document may materially change the coding, format and clinical context of patient data. In addition, data may be omitted in some cases. CLINICAL DECISIONS SHOULD BE BASED ON THE PRIMARY CLINICAL RECORDS. [facility]. provides no warranty or guarantee of the accuracy or completeness of information in this document.
== END | disposition home or self-care (01) ==
LOC: SL 10:48
PROVIDERS: PCP Family Medicine; Visit Provider Nurse Practitioner Acute Care
DX: G47.33 Obstructive sleep apnea (adult) (pediatric) (principal); Z99.89 Dependence on other enabling machines and devices

== ENCOUNTER → 2023-09-11 | Outpatient (CLI) | payer MEDICARE, SELFPAY ==
--- NOTE | 2023-09-12 | LES_PTH ---
PATIENT: JAY CASTANO LOC: [facility] U#:[id number] AGE/SX: 73/F ROOM: RE09/11/[address]: Dr. Tali Morocho DO : 1950 BED: DIS: 09/11/2023 SPEC #: [id number] RECD: 09/12/23 12:52 STATUS: ZEKE LENIN #: [id number] LILI: 09/12/23 00:[address]: Tali Morocho DEPT: SURGICAL PATHOLOGY RECD BY: Jun Garcia Tissues: Skin of upper extremity and shoulder Procedures: Surgery Specimen Level IV HEADER OPERATION: Excisional biopsy PRE-OP DIAGNOSIS: Skin lesion x years, darker and raised TISSUE SUBMITTED: Right posterior shoulder MICROSCOPIC DIAGNOSIS Right posterior shoulder lesion, excisional biopsy: Dermatofibroma. See comment. MARIANELA/ 09/13/2023 COMMENT Immunohistochemistry ([id number]) supports the above diagnosis. The lesion is present at lateral and deep margin of the specimen. Case has been reviewed in consultation with Dr. Jimenez who concurs with the above diagnosis. IDC:SJ Clinical correlation and appropriate follow up are necessary. MICROSCOPIC DESCRIPTION Slides are reviewed. GROSS DESCRIPTION Received is one container labeled with the patient's name and not further designated. The specimen consists of a piece of lopez-brown skin measuring 0.7 x 0.5 x 0.2cm. This specimen is inked, serially sectioned and submitted entirely in one cassette. SJ/mr 09/12/23 TC:1 CPT:46629
--- NOTE | 2023-09-12 | IMM_PTH ---
PATIENT: JAY CASTANO [facility] U#:[id number] AGE/SX: 73/F ROOM: RE09/11/[address]: Dr. Tali Morocho DO : 1950 BED: DIS: 09/11/2023 SPEC #: [id number] RECD: 09/13/23 11:19 STATUS: ZEKE REQ #: [id number] LILI: 09/12/23 00:[address]: Tali Morocho DEPT: IMMUNOHISTOCHEMISTRY RECD BY: Timmy Dominguez Tissues: Shoulder, NOS Procedures: SMA (add) CD31 (add) CD34 (add) DESMIN (add) KI-67 (add) Vimentin (add) FACTOR VIII (add) Pankeratin (initial) MELAN-A (add) S-100 (add) PHYSICIAN & INSTITUTION [place] [address] SPECIMEN INFORMATION: Tissue Source: Right posterior shoulder Clinical Info: Skin lesion x years darker and raised Specimen Number: [id number] CPT code: 68434,82202q4 METHODOLOGY: Deparaffinized sections of prefer/formalin-fixed tissue or PAP/DQ stained slides are incubated with monoclonal/polyclonal antibodies/oligonucleotide probes. Localization is made via biotin free immunoperoxidase method. Appropriate controls are performed and reacted as expected. Results on target cell population are indicated in the following table: RESULTS: ANTIBODY / CLONE RESULT AE1-3 (AE1/AE3/PCK26) negative Vimentin (V9) positive CD31 (LEYDA/70A) negative Factor VIII (R Ag) negative CD34 (QBEnd-10) negative Actin (1A4) negative Desmin (CE-R-11) negative Melan A (A103) negative S-100 (4C4.9) negative Ki-67 (30-9) positive, <1% These tests were developed and their performance characteristics determined by [facility]. They may not have been cleared or approved by the U.S. Food and Drug Administration. The FDA has determined that such clearance or approval is not necessary. The above immunohistochemical/dualISH markers are ordered and reviewed by the Pathologist. INTERPRETATION: Right posterior shoulder, excisional biopsy: Dermatofibroma. AM/mr 09/17/2023
== END | disposition home or self-care (01) ==
PROVIDERS: PCP Family Medicine; Referring Provider Family Medicine; Visit Provider Family Medicine
DX: L98.9 Disorder of the skin and subcutaneous tissue, unspecified (principal)
CPT/HCPCS: 88305; 88341; 88342

== ENCOUNTER → 2024-03-26 | Outpatient (CLI) | payer MEDICARE, SELFPAY ==
[2024-03-26 12:44] LABS: AST(SGOT) 21 U/L (15-37); Alanine Aminotransfer ALT/SGPT 26 U/L (13-56); Albumin, Serum 3.8 g/dL (3.2-5.0); Alkaline Phosphatase 106 U/L (45-117); Anion Gap 6 (5-15); BUN 21 mg/dL (7-18); BUN/Creat Ratio 31.9 RATIO (10-20); Calcium,Total 9.3 mg/dL (8.5-10.1); Chloride 102 mmol/L (98-107); Creatinine, Serum 0.66 mg/dL (0.55-1.02); EST Glomerular Filtration Rate 94 mL/min (>60); Est Glom Filt Rate - Afr Amer 114 mL/min (>60); Globulin 3.7 g/dL (2.2-4.2); Glucose 106 mg/dL (74-106); Potassium 3.8 mmol/L (3.5-5.1); Protein, Total 7.5 g/dL (6.4-8.2); Sodium Level 137 mmol/L (136-145); T4 Free Direct 0.73 ng/dL (0.76-1.46); Thyroid Stim Hormone (TSH) 0.913 uIU/mL (0.358-3.740)
== END | disposition home or self-care (01) ==
LOC: BFHLAB 10:46
PROVIDERS: PCP Family Medicine; Referring Provider Family Medicine; Visit Provider Family Medicine
DX: E03.9 Hypothyroidism, unspecified (principal); Z51.81 Encounter for therapeutic drug level monitoring
CPT/HCPCS: 36415; 80053; 84439; 84443; 84481

== ENCOUNTER → 2024-07-30 | Outpatient (CLI) | payer MEDICARE, SELFPAY ==
[2024-07-30 15:15] LABS: Absolute Lymphocyte Count 2.26 X10^3/uL (0.83-4.51); Absolute Neutrophil Count 4.7 X10^3/uL (2.0-7.7); Basophil# 0.07 X10^3/uL; Basophil% 0.9 % (0-1); Eosinophil# 0.18 X10^3/uL; Eosinophils% 2.3 % (0-5); Hematocrit 47.2 % (37-47); Hemoglobin 15.8 g/dL (12.0-15.0); Lymphocyte # 2.26 X10^3/ul (0.83-4.51); Lymphocyte % 28.6 % (19-41); Mean Corp Hgb Conc 33.5 g/dL (32-36); Mean Corpuscular Hgb 26.7 pg (27.0-32.0); Mean Corpuscular Volume 79.7 fL (81-99); Mean Platelet Vol. 11.2 fl (6.2-12.0); Monocyte% 8.8 % (0-10); NRBC Flagged by Analyzer 0 % (0-5); Neutrophil # 4.66 X10^3/uL (2.7-7.7); Neutrophil % 58.9 % (47-70); Platelet Count 247 K/mm3 (150-450); RBC Distribution Width CV 15.2 % (11.6-14.6); RBC Distribution Width SD 43.8 fl (35.1-43.9); Red Blood Count 5.92 M/mm3 (4.2-5.4); White Blood Count 7.9 K/mm3 (4.4-11.0)
[2024-07-30 21:26] LABS: ALB/GLOB Ratio 1.6 RATIO (0.9-2.4); AST(SGOT) 25 U/L (<=31); Alanine Aminotransfer ALT/SGPT 25 U/L (<=34); Albumin, Serum 4.4 g/dL (3.4-4.8); Alkaline Phosphatase 86 U/L (35-104); Anion Gap 14 (5-15); BUN 27 mg/dL (4-19); BUN/Creat Ratio 34.1 RATIO (10-20); Calcium,Total 9.9 mg/dL (7.6-11.0); Carbon Dioxide 20.1 mmol/L (21.0-32.0); Chloride 104 mmol/L (98-108); Creatinine, Serum 0.78 mg/dL (0.70-1.20); EST Glomerular Filtration Rate 81 (>60); Free T3 3.4 pg/mL (2.18-3.98); Globulin 2.8 g/dL (2.2-4.2); Glucose 101 mg/dL (70-99); Potassium 4.4 mmol/L (3.3-5.1); Protein, Total 7.3 g/dL (5.9-8.4); Sodium Level 138 mmol/L (133-145); Total Bilirubin 0.28 mg/dL (0.00-1.30)
== END | disposition home or self-care (01) ==
LOC: BFHLAB 11:51
PROVIDERS: PCP Family Medicine; Visit Provider Family Medicine
DX: E03.9 Hypothyroidism, unspecified (principal); Z51.81 Encounter for therapeutic drug level monitoring
CPT/HCPCS: 36415; 80053; 84439; 84443; 84481; 85025

== ENCOUNTER → 2024-08-21 | Outpatient (CLI) | payer MEDICARE, SELFPAY ==
--- NOTE | 2024-08-21 13:48 | STEWCON_ITS ---
Reason For Study Reason For Study: HTN Stress Results Protocol: Ebenezer Protocol WITH DEFINITY Maximum Predicted HR: 148 bpm Target HR: 126 bpm % Maximum Predicted HR: 78 % DurationHeart Rate Stage (mm:ss) (bpm) BP Comment BASELINE 66 144/903 CC DEFINITY FOR TEST STAGE 1 3:00 89 144/86 STAGE 2 3:00 105 148/96SCIATIC PAIN, SLIGHT SOB, NO CHEST PAIN STAGE 3 1:30 115 / RECOVERY 79 140/80 Stress Duration: 7:30 mm:ss Maximum Stress HR: 115 bpm Baseline Echocardiogram Findings Stress Echo Wall motion Data Resting WM Intermediate WM Stress WM ECHO/Stress Test Echo W/Contrast Interpretation Summary Exercise stress echo with Definity enhancement. 74-year-old lady with a history of shortness of breath. Resting EKG demonstrates normal sinus rhythm with a rate of 66 bpm resting bloo d pressure is 144/90 mmHg. The patient exercised according to regular Ebenezer protocol for total duration of 7 minutes a nd 30 seconds. Patient completed 1 minute and 30 seconds due to stage III of the Ebenezer protocol the maximum heart rate at tained was 115 bpm which was 77% maximum predicted heart rate the maximum workload was 10.1 metabolic equivalents. At re st there were no ST or T wave changes noted suggest ischemia at peak exercise nonspecific ST changes were noted we di d not meet the criteria for ischemia. No clinical angina was noted the peak blood pressure was 148/90 mmHg which was a n ormal blood pressure response to exercise. Stress echocardiogram. Stress echocardiogram was performed with Definity enhancement. At rest there we re no obvious wall motion abnormalities noted the estimated ejection fraction was 55% at peak exercise there was improv ement in the contractility with peaking of ejection fraction approximately 60% with no wall motion abnormalities presen t. Conclusion: Normal Definity enhanced stress echocardiogram with no evidence of ischemia at a high workload. Ordering Physician: Tali Morocho Referring Physician: Tali Morocho Performed By: Teresita Brewer, RDCS, RVT
== END | disposition home or self-care (01) ==
PROVIDERS: PCP Family Medicine; Referring Provider Family Medicine; Visit Provider Family Medicine
DX: R07.9 Chest pain, unspecified (principal); I10 Essential (primary) hypertension
CPT/HCPCS: 93017; 93350; Q9957; A4216; C8928